=== PATIENT | male | born 1985 | race Hispanic/Latino ===

== ENCOUNTER 2022-03-24 11:38 | Emergency (ER) | payer SELFPAY ==
[2022-03-24] MEDS ORDERED: Boostrix 0.5 ML (Tdap) VIAL ONE (13:14)
[2022-03-24] MEDS ORDERED: Lidocaine 1% w/Epinephrine 1:100K 20 ML VIAL ONE ×2 (13:14→15:03)
[2022-03-24] MEDS ORDERED: Bupivacaine 0.25% 10 ML VIAL ONE (14:03)
[2022-03-24] MEDS ORDERED: Lidocaine 1% PF 5 ML VIAL ONE ×2 (14:03→15:03)
[2022-03-24] MEDS ORDERED: Bacitracin 1 PK ONE (14:47)
== END 2022-03-24 15:21 | disposition home or self-care (01) ==
LOC: EDBD 11:38 → ERS 11:38
DX: S61.211A Laceration without foreign body of left index finger without damage to nail, initial encounter (principal); W26.0XXA Contact with knife, initial encounter; Y92.009 Unspecified place in unspecified non-institutional (private) residence as the place of occurrence of the external cause
CPT/HCPCS: 12002; 90715; S0020